=== PATIENT | female | born 1990 | race Caucasian/White ===

== ENCOUNTER 2022-08-22 08:18 | Inpatient (IN) | payer MEDICAID, OTHER ==
[~2022-08-22] VITALS: Ht 162.6 cm; Wt 73.9 kg
[2022-08-22] MEDS ORDERED: LIDOCAINE HCL 1% 20ML VIAL (Pyxis) INJ INFIL NR (09:30)
[2022-08-22] MEDS ORDERED: OXYTOCIN 30 UNITS/500ML NS PMX 500 ML IV ONE (09:30)
[2022-08-22] MEDS ORDERED: LACTATED RINGERS 1,000 ML IV SCH (09:30)
[2022-08-22] MEDS ORDERED: METHYLERGONOVINE MALEATE 0.2 MG/ML IM PRN (09:45)
[2022-08-22] MEDS ORDERED: IBUPROFEN 400MG TABLET PO PRN (09:45)
[2022-08-22] MEDS ORDERED: RHO(D) IMMUNE GLOBULIN 300 MCG/SYR IM PRN (09:45)
[2022-08-22] MEDS ORDERED: OXYTOCIN 30 UNITS/500ML NS PMX 500 ML IV SCH (09:45)
[2022-08-22] MEDS ORDERED: BISACODYL 10MG SUPP PR PRN (09:45)
[2022-08-22 10:33] LABS: BASOPHILS % 0.3 % (0.0-2.0); EOSINOPHILS % 0.1 % (0.0-5.0); HEMATOCRIT. 41.6 % (36.0-48.0); HEMOGLOBIN. 13.7 g/dL (12.0-16.0); LYMPHOCYTES % 13.8 % (20.0-50.0); MEAN CORPUSCULAR HEMOGLOBIN 30.4 pg (28.0-32.0); MEAN CORPUSCULAR VOLUME 91.8 fL (81.0-99.0); MEAN PLATELET VOLUME 9.8 fl (7.4-10.4); MONOCYTES % 2.6 % (2.0-8.0); NEUTROPHILS % 83.2 % (40.0-76.0); PLATELET 239 x1000/uL (130-400); RED BLOOD CELL COUNT 4.53 mill/uL (4.2-5.4); RED CELL DISTRIBUTION WIDTH 15.2 % (11.6-14.6)
[2022-08-22 10:44] LABS: INR 0.9; PARTIAL THROMBOPLASTIN TIME 27.5 sec (23.4-31.0); PROTHROMBIN TIME 9.8 sec (9.6-11.0)
[2022-08-22 10:48] LABS: CLARITY URINE CLEAR (CLEAR); COLOR URINE YELLOW (YELLOW); KETONES URINE 1+ (NEGATIVE); LEUKOCYTE ESTERASE URINE TRACE (NEGATIVE); NITRITE URINE NEGATIVE (NEGATIVE); OCCULT BLOOD URINE 2+ (NEGATIVE); PH URINE 7.5 (4.5-8.0); PROTEIN URINE 1+ (NEGATIVE); SPECIFIC GRAVITY URINE 1.025 (1.005-1.030)
[2022-08-22 11:00] VITALS: BP 105/59
[2022-08-22 11:21] LABS: *AMPHETAMINES SCREEN URINE NEGATIVE (NEGATIVE); *BARBITURATES SCREEN URINE NEGATIVE (NEGATIVE); *BENZODIAZEPINES SCREEN URINE NEGATIVE (NEGATIVE); *COCAINE SCREEN URINE NEGATIVE (NEGATIVE); CANNABINOID URINE SCREEN NEGATIVE (NEGATIVE); METHADONE URINE SCREEN NEGATIVE (NEGATIVE); OPIATES URINE SCREEN NEGATIVE (NEGATIVE); PHENCYCLIDINE URINE SCREEN NEGATIVE (NEGATIVE)
[2022-08-22] MEDS: LANOLIN OINT 7GM TUBE TOP PRN ×2 (11:52→20:54)
[2022-08-22 12:00] VITALS: BP 104/56
[2022-08-22] MEDS ORDERED: BENZOCAINE/LANOLIN/ALOE VERA SPRAY TOP PRN (13:30)
[2022-08-22 13:44] LABS: HEPATITIS B SURFACE ANTIGEN NEGATIVE
[2022-08-22 15:50] VITALS: BP 99/55
[2022-08-22 20:00] VITALS: BP 101/54
[2022-08-22] MEDS: DOCUSATE SODIUM 100MG CAPSULE PO SCH (20:54)
[2022-08-22] MEDS: IBUPROFEN 800MG TABLET PO PRN (23:08)
[2022-08-23 04:00] VITALS: BP 98/53
[2022-08-23 06:29] LABS: BASOPHILS % 0.5 % (0.0-2.0); EOSINOPHILS % 0.3 % (0.0-5.0); HEMATOCRIT. 33.1 % (36.0-48.0); HEMOGLOBIN. 11.5 g/dL (12.0-16.0); LYMPHOCYTES % 22.1 % (20.0-50.0); MEAN CORPUSCULAR HEMOGLOBIN 31.7 pg (28.0-32.0); MONOCYTES % 5.8 % (2.0-8.0); NEUTROPHILS % 71.3 % (40.0-76.0); PLATELET 189 x1000/uL (130-400); RED BLOOD CELL COUNT 3.64 mill/uL (4.2-5.4); RED CELL DISTRIBUTION WIDTH 15.4 % (11.6-14.6)
[2022-08-23 10:00] VITALS: BP 98/60
[2022-08-23] MEDS: PRENATAL VIT/FE FUMARATE/FA TABLET PO SCH (10:12)
[2022-08-23] MEDS: DOCUSATE SODIUM 100MG CAPSULE PO SCH ×2 (10:12→21:30)
[2022-08-23 14:30] VITALS: BP 107/64
[2022-08-23 20:15] VITALS: BP 120/69
[2022-08-24 03:15] VITALS: BP 113/74
[2022-08-24] MEDS: IBUPROFEN 800MG TABLET PO PRN (03:17)
[2022-08-24 07:30] VITALS: BP 106/72
[2022-08-24] MEDS: PRENATAL VIT/FE FUMARATE/FA TABLET PO SCH (07:47)
[2022-08-24] MEDS ORDERED: MULT-1146 MT (08:52)
[2022-08-24] MEDS ORDERED: FERR325T6 MT (08:52)
[2022-08-24] MEDS ORDERED: IBUP-2030 PO (08:52)
== END 2022-08-24 13:45 | disposition home or self-care (01) | DRG 560 ==
LOC: 8 EST A/PP 08:18 → OBSVTOIN 08:18 → 8 EST LDRP 08:41 → 8EST 09:50
PROVIDERS: ADMIT Obstetrics & Gynecology; ATTEND Obstetrics & Gynecology
PROC: 10E0XZZ Delivery of Products of Conception, External Approach (ICD-10-PCS; principal; 2022-08-22)
PROC: 0HQ9XZZ Repair Perineum Skin, External Approach (ICD-10-PCS; 2022-08-22)
DX: O99.02 Anemia complicating childbirth (principal); Z37.0 Single live birth; D62 Acute posthemorrhagic anemia; O70.0 First degree perineal laceration during delivery; Z3A.39 39 weeks gestation of pregnancy; Z20.822 Contact with and (suspected) exposure to COVID-19; Z88.0 Allergy status to penicillin
CPT/HCPCS: 36415; 80305; 81003; 85025; 86592; 86703; 86762; 86850; 86900; 87340; 87426; 99281; G0378; J3490; J7120; J2590